=== PATIENT | female | born 1955 | race Caucasian/White ===

== ENCOUNTER 2020-11-19 10:29 | Day surgery (SDC) | payer MEDICAID, SELFPAY ==
[~2020-11-19] VITALS: Ht 160 cm; Wt 72.6 kg
[2020-11-19] MEDS ORDERED: EPINEPHrine 1 MG/ML VIAL IV ONE (11:53)
[2020-11-19] MEDS ORDERED: LIDOCAINE/EPI 1% 1:100000 20 ML VIAL INJ ONE (11:53)
[2020-11-19] MEDS ORDERED: ONDANSETRON HCL 4 MG/2 ML VIAL IVP ONE (11:53)
[2020-11-19] MEDS ORDERED: ROCURONIUM BROMIDE 10 MG/ML (ZEMURON) IV ONE (11:53)
[2020-11-19] MEDS ORDERED: PROPOFOL 200MG/ 20ML VIAL (DIPRIVAN) IV ONE (11:53)
[2020-11-19] MEDS ORDERED: ALBUTEROL MDI INHALATION 8 GM INH INH ONE (11:53)
[2020-11-19] MEDS ORDERED: SEVOFLURANE 15 MIN GAS INH ONE (11:53)
[2020-11-19] MEDS ORDERED: fentaNYL CITRATE 250 MCG/5 ML AMP IV ONE (11:53)
[2020-11-19] MEDS ORDERED: LEVOFLOXACIN IN DEXTROSE 5 % 500 MG/100 ML PIGGYBACK IV ONE (11:53)
[2020-11-19] MEDS ORDERED: NS IRRIG SOLN 1000 ML IR ONE (11:53)
[2020-11-19] MEDS ORDERED: MIDAZOLAM HCL 5 MG/5 ML VIAL IVP ONE (11:53)
[2020-11-19] MEDS ORDERED: WATER FOR IRRIGATION,STERILE 1,000 ML IRRIG.SOLN IR ONE (11:53)
[2020-11-19] MEDS ORDERED: DEXAMETHASONE SOD PHOSPHATE 4 MG/ML VIAL IVP ONE (11:53)
[2020-11-19] MEDS ORDERED: CEFAZOLIN 2 GM IVPB PREMIX 50 ML IV ONE (11:53)
[2020-11-19] MEDS ORDERED: LIDOCAINE 2%, 20 ML MDV INJ ONE (11:53)
[2020-11-19] MEDS ORDERED: ePHEDrine sulfate 50 MG/ML VIAL IVP ONE (11:53)
[2020-11-19] MEDS ORDERED: SUGAMMADEX SODIUM 200 MG/2 ML VIAL IV ONE (11:53)
[2020-11-19] MEDS ORDERED: GLYCOPYRROLATE 0.2 MG/ML VIAL IJ ONE (11:53)
[2020-11-19] MEDS ORDERED: LR 1,000 ML IV.SOLN IV ONE (11:53)
[2020-11-19] MEDS ORDERED: NS 250 ML IV.SOLN IV ONE (11:53)
[2020-11-19] MEDS ORDERED: LR 1,000 ML IV SCH (12:45)
[2020-11-19] MEDS ORDERED: MEPERIDINE HCL/PF 25 MG/ML DISP.SYRIN IVP PRN (12:45)
[2020-11-19] MEDS ORDERED: METOCLOPRAMIDE HCL 10 MG/2 ML VIAL IVP PRN (12:45)
[2020-11-19] MEDS ORDERED: hydrALAZINE HCL 20 MG/ML VIAL IVP PRN (12:45)
[2020-11-19] MEDS ORDERED: ONDANSETRON HCL 4 MG/2 ML VIAL IVP PRN (12:45)
[2020-11-19] MEDS ORDERED: MIDAZOLAM HCL 2 MG/2 ML VIAL (VERSED) IVP PRN (12:45)
[2020-11-19] MEDS ORDERED: HYDROmorphone 1 INJ. 1 MG/ML CARTRIDGE IVP PRN ×2 (12:45)
[2020-11-19] MEDS ORDERED: ALBUTEROL SULFATE 0.083% 2.5 MG/3 ML VIAL.NEB INH SCH (13:30)
[2020-11-19] MEDS ORDERED: ALBUTEROL SULFATE 0.083% 2.5 MG/3 ML VIAL.NEB INH ONE ×2 (14:55→15:00)
[2020-11-19] MEDS: HYDROmorphone 1 INJ. 1 MG/ML CARTRIDGE ONE ×2 (15:25→15:30)
[2020-11-19 17:07] VITALS: BP_SYST 120
[2020-11-19] MEDS ORDERED: ONDANSETRON HCL 4 MG/2 ML VIAL ONE (17:45)
== END 2020-11-19 18:28 | disposition home or self-care (01) ==
LOC: SDS 10:29 → SMU 10:30 → SDS 18:28
PROVIDERS: ATTEND Otolaryngology
DX: J34.2 Deviated nasal septum (principal); D38.5 Neoplasm of uncertain behavior of other respiratory organs; J45.909 Unspecified asthma, uncomplicated; E11.49 Type 2 diabetes mellitus with other diabetic neurological complication; Z20.828 Contact with and (suspected) exposure to other viral communicable diseases
CPT/HCPCS: 31255; 31256; 31296; 87070; 87075; 87101; 88305; 88311; 94640; C1726; C9399; J0171; J0690; J1100; J1170; J1956; J2001; J2250; J2405; J2704; J3010; J3490; J7050; J7120; J7613; U0003; 88304